=== PATIENT | female | born 1955 | race Caucasian/White ===

== ENCOUNTER 2022-02-12 16:02 | Observation (INO) | payer BC, MEDICARE ==
[~2022-02-12] VITALS: Ht 157.5 cm; Wt 82.0 kg
[2022-02-12 17:08] LABS: BASO # 0.04 K/mm3 (0.02-0.10); EOS # 0.33 K/mm3 (0.04-0.40); EOS % 2.8 % (1.0-5.0); HEMATOCRIT 32.6 % (37.0-47.0); LYMPH# 1.21 K/mm3 (1.50-4.00); MEAN CELL VOLUME 95 fl (78-100); MEAN CORPUSCULAR HEMOGLOBIN 29 pg (27-31); MEAN CORPUSCULAR HGB CONC 31 g/dL (33-37); MEAN PLATELET VOLUME 9.1 fl (7.4-10.4); MONO # 0.69 K/mm3 (0.20-0.80); NEU # 9.61 K/mm3 (1.40-6.50); PLATELET COUNT 392 K/mm3 (130-400); RED BLOOD COUNT 3.45 M/mm3 (4.10-5.30); RED CELL DISTRIBUTION WIDTH 16.4 % (11.5-14.5); WHITE BLOOD COUNT 11.9 K/mm3 (4.8-10.8)
[2022-02-12] MEDS ORDERED: LEVOTHYROXINE125 MCG PO (17:10)
[2022-02-12] MEDS ORDERED: INCRUSE EL62.5 MCG/A IH (17:10)
[2022-02-12] MEDS ORDERED: FUROSEMIDE20 MG PO (17:11)
[2022-02-12] MEDS ORDERED: DILT-XR240 MG PO (17:11)
[2022-02-12] MEDS ORDERED: PROAIR HFA0.09 MG/AC IH (17:11)
[2022-02-12] MEDS ORDERED: PRILOSEC 20MG20 MG (17:11)
[2022-02-12] MEDS ORDERED: NITRO-DUR1 EAC3 TD (17:11)
[2022-02-12] MEDS ORDERED: ADVAIR DISKUS1 DS1 IH (17:12)
[2022-02-12] MEDS ORDERED: BIOTENE DRY MO473 ML MM (17:12)
[2022-02-12] MEDS ORDERED: ASPIRIN E.C. 8181 MG (17:12)
[2022-02-12] MEDS ORDERED: ATORVASTATIN CA80 MG PO (17:12)
[2022-02-12] MEDS ORDERED: BRILINTA90 MG PO (17:13)
[2022-02-12] MEDS ORDERED: SINGULAIR 110 MG/TAB PO (17:14)
[2022-02-12 17:19] LABS: ALBUMIN 3.4 g/dL (3.4-4.8); POTASSIUM 3.5 mmol/L (3.5-5.1)
[2022-02-12 17:20] LABS: CALCIUM 8.9 mg/dL (8.3-10.5)
[2022-02-12 17:21] LABS: TOTAL PROTEIN 6.7 g/dL (6.2-8.1)
[2022-02-12 17:23] LABS: TOTAL BILIRUBIN 0.7 mg/dL (0.2-1.2)
[2022-02-12 18:05] LABS: URINE APPEARANCE CLOUDY; URINE BILIRUBIN NEGATIVE (NEGATIVE); URINE BLOOD 50 ery/uL (NEGATIVE); URINE COLOR YELLOW; URINE GLUCOSE NEGATIVE (NEGATIVE); URINE KETONE NEGATIVE (NEGATIVE); URINE LEUKOCYTE ESTERASE NEGATIVE (NEGATIVE); URINE NITRATE NEGATIVE (NEGATIVE); URINE PROTEIN(semi-quant) 1+ (NEGATIVE); URINE UROBILINOGEN NORMAL (NORMAL)
[2022-02-13 00:13] VITALS: BP 109/59
[2022-02-13] MEDS ORDERED: LOSARTAN POTASS25 MG PO (05:58)
[2022-02-13 06:13] VITALS: BP 133/60
[2022-02-13 09:43] VITALS: BP 103/47
[2022-02-13 14:44] VITALS: BP 112/53
[2022-02-13 15:12] LABS: BASO # 0.04 K/mm3 (0.02-0.10); EOS # 0.19 K/mm3 (0.04-0.40); HEMATOCRIT 30.8 % (37.0-47.0); HEMOGLOBIN 9.2 g/dL (12.5-16.0); LYMPH# 1.03 K/mm3 (1.50-4.00); MEAN CELL VOLUME 95 fl (78-100); MEAN CORPUSCULAR HEMOGLOBIN 28 pg (27-31); MEAN CORPUSCULAR HGB CONC 30 g/dL (33-37); MEAN PLATELET VOLUME 8.8 fl (7.4-10.4); MONO # 0.44 K/mm3 (0.20-0.80); NEU # 7.84 K/mm3 (1.40-6.50); PLATELET COUNT 352 K/mm3 (130-400); RED BLOOD COUNT 3.26 M/mm3 (4.10-5.30); RED CELL DISTRIBUTION WIDTH 16.4 % (11.5-14.5); WHITE BLOOD COUNT 9.6 K/mm3 (4.8-10.8)
[2022-02-13 15:20] LABS: CALCIUM 8.7 mg/dL (8.3-10.5)
== END 2022-02-13 17:00 | disposition home or self-care (01) ==
LOC: ED 16:02 → MED/SURG 02-13 00:13
PROVIDERS: Nurse Practitioner; ADMIT Family Medicine
DX: K80.20 Calculus of gallbladder without cholecystitis without obstruction (principal); J44.9 Chronic obstructive pulmonary disease, unspecified; I25.10 Atherosclerotic heart disease of native coronary artery without angina pectoris; I25.2 Old myocardial infarction; Z95.2 Presence of prosthetic heart valve; Z79.82 Long term (current) use of aspirin; Z79.51 Long term (current) use of inhaled steroids
CPT/HCPCS: G0378; J0595; J1885; J3480; Q9967

== ENCOUNTER 2022-04-25 20:43 | Emergency (ER) | payer BC, MEDICARE ==
[~2022-04-25] VITALS: Ht 157.5 cm; Wt 82.1 kg
[~2022-04-25 20:43] MED LIST: ADVAIR DISKUS1 DS1 IH; ASPIRIN E.C. 8181 MG; ATORVASTATIN CA80 MG PO; BIOTENE DRY MO473 ML MM; BRILINTA90 MG PO; DILT-XR240 MG PO; FUROSEMIDE20 MG PO; INCRUSE EL62.5 MCG/A IH; LEVOTHYROXINE125 MCG PO; LOSARTAN POTASS25 MG PO; NITRO-DUR1 EAC3 TD; PRILOSEC 20MG20 MG PO; PROAIR HFA0.09 MG/AC IH; SINGULAIR 110 MG/TAB PO
[2022-04-25 22:30] LABS: BASO # 0.05 K/mm3 (0.02-0.10); EOS # 0.25 K/mm3 (0.04-0.40); EOS % 2.3 % (1.0-5.0); HEMATOCRIT 31.2 % (37.0-47.0); HEMOGLOBIN 9.4 g/dL (12.5-16.0); LYMPH# 0.88 K/mm3 (1.50-4.00); MEAN CELL VOLUME 90 fl (78-100); MEAN CORPUSCULAR HEMOGLOBIN 27 pg (27-31); MEAN CORPUSCULAR HGB CONC 30 g/dL (33-37); MEAN PLATELET VOLUME 9.2 fl (7.4-10.4); MONO # 0.61 K/mm3 (0.20-0.80); NEU # 9.03 K/mm3 (1.40-6.50); PLATELET COUNT 356 K/mm3 (130-400); RED BLOOD COUNT 3.48 M/mm3 (4.10-5.30); RED CELL DISTRIBUTION WIDTH 15.2 % (11.5-14.5); WHITE BLOOD COUNT 10.8 K/mm3 (4.8-10.8)
[2022-04-25 22:35] LABS: ALBUMIN 3.3 g/dL (3.4-4.8); POTASSIUM 3.6 mmol/L (3.5-5.1); SODIUM 138 mmol/L (136-145)
[2022-04-25 22:37] LABS: CALCIUM 8.9 mg/dL (8.3-10.5)
[2022-04-25 22:38] LABS: GLUCOSE 108 mg/dL (65-105); TOTAL PROTEIN 6.1 g/dL (6.2-8.1)
[2022-04-25 22:39] LABS: CARBON DIOXIDE 25 mmol/L (23-31)
[2022-04-25 22:40] LABS: TOTAL BILIRUBIN 0.5 mg/dL (0.2-1.2)
[2022-04-25 22:43] LABS: AST-SGOT 8 U/L (5-34)
[2022-04-25 22:44] LABS: ALT/SGPT 7 U/L (0-55)
[2022-04-25 22:51] LABS: PROTHROMBIN TIME 9.3 SECONDS (9.0-12.0)
[2022-04-25 22:56] LABS: TROPONIN-I < 0.030 ng/mL (<0.030)
[2022-04-25 22:57] LABS: PH-URINE 6.5 (5.0 - 8.0); URINE APPEARANCE CLOUDY; URINE COLOR YELLOW
[2022-04-25 22:58] LABS: URINE BILIRUBIN NEGATIVE (NEGATIVE); URINE BLOOD TRACE (NEGATIVE); URINE GLUCOSE NEGATIVE (NEGATIVE); URINE KETONE NEGATIVE (NEGATIVE); URINE LEUKOCYTE ESTERASE TRACE (NEGATIVE); URINE NITRATE NEGATIVE (NEGATIVE); URINE PROTEIN(semi-quant) TRACE (NEGATIVE); URINE UROBILINOGEN NORMAL (NORMAL)
[2022-04-25 23:10] LABS: D-DIMER 0.89 mg/L FEU (0.15-0.50)
[2022-04-26] MEDS ORDERED: PREDNISONE20 M1 PO (01:04)
[2022-04-26] MEDS ORDERED: MORGIDOX 1X100100 MG PO (01:04)
[2022-04-26 01:20] VITALS: BP 93/78
== END 2022-04-26 01:20 | disposition home or self-care (01) ==
LOC: ED 20:43
PROVIDERS: Nurse Practitioner
DX: J18.9 Pneumonia, unspecified organism (principal); J44.9 Chronic obstructive pulmonary disease, unspecified; R91.1 Solitary pulmonary nodule; Z87.891 Personal history of nicotine dependence; Z86.16 Personal history of COVID-19; Z99.81 Dependence on supplemental oxygen; Z20.822 Contact with and (suspected) exposure to COVID-19
CPT/HCPCS: J2930; Q9967